=== PATIENT | male | born 1965 | race Caucasian/White ===

== ENCOUNTER 2024-03-17 21:40 | Emergency (ER) | payer MEDICAID ==
[2024-03-17] MEDS ORDERED: Sodium Chloride 0.9% 10 ML Syringe FLUSH PRN (21:46)
[2024-03-17 22:06] LABS: BASOPHILS PERCENT AUTO 0.3 % (0.2-1.2); EOSINOPHILS ABSOLUTE AUTO 0.2 x10^3/uL (0.0-0.5); EOSINOPHILS PERCENT AUTO 2.8 % (0.0-4.0); HEMATOCRIT 45.4 % (40.0-52.0); HEMOGLOBIN 15.8 g/dL (14.0-18.0); IMMATURE GRAN ABSOLUTE AUTO 0.01 x10^3/uL (0.00-0.07); LYMPHOCYTES ABSOLUTE AUTO 2.5 x10^3/uL (1.0-4.8); LYMPHOCYTES PERCENT AUTO 31.6 % (25.0-50.0); MEAN CORPUSCULAR HEMOGLOBIN 32.2 pg (26.0-32.0); MEAN CORPUSCULAR HGB CONC 34.8 g/dL (32.0-36.0); MEAN CORPUSCULAR VOLUME 92.7 fL (78.0-93.0); MONOCYTES ABSOLUTE AUTO 0.7 x10^3/uL (0.0-0.8); MONOCYTES PERCENT AUTO 9.3 % (2.0-11.0); NEUTROPHILS ABSOLUTE AUTO 4.5 x10^3/uL (1.8-7.7); NEUTROPHILS PERCENT AUTO 55.9 % (50.0-80.0); PLATELET COUNT,PLT 252 x10^3/uL (130-400)
[2024-03-17 22:18] LABS: PROTHROMBIN TIME 10.4 SEC (8.9-11.5)
[2024-03-17 22:23] LABS: A/G RATIO 1.13; ALANINE AMINOTRANSFERASE,ALT 14 U/L (16-63); ALBUMIN 3.6 g/dL (3.4-5.0); ALKALINE PHOSPHATASE 85 U/L (46-116); ANION GAP 13.7 mmol/L (5-15); ASPARTATE AMNIOTRANSFERASE,AST 13 U/L (15-37); BILIRUBIN TOTAL 0.2 mg/dL (0.2-1.0); BLOOD UREA NITROGEN,BUN 14 mg/dL (7-18); CALCIUM 8.3 mg/dL (8.5-10.1); CARBON DIOXIDE,CO2 27 mmol/L (21-32); CHLORIDE,CL 105 mmol/L (98-107); CREATININE 0.8 mg/dL (0.70-1.30); ESTIMATED GFR 102 mL/min (>=60); GLUCOSE RANDOM 94 mg/dL (70-99); MAGNESIUM 1.7 mg/dL (1.8-2.4); POTASSIUM,K 3.7 mmol/L (3.5-5.1); PROTEIN TOTAL,TP 6.8 g/dL (6.4-8.2); SODIUM,NA 142 mmol/L (136-145)
== END 2024-03-17 22:12 | disposition left against medical advice (07) ==
LOC: VM.ED 21:40
DX: R07.9 Chest pain, unspecified (principal)
CPT/HCPCS: 36415; 71045; 80053; 83735; 84484; 85025; 85610; 93005; 93010; 99284; 99285

== ENCOUNTER 2025-05-06 03:20 | Emergency (ER) | payer SELFPAY ==
[2025-05-06] MEDS ORDERED: Dexamethasone 4 MG/ML SDV IM ONE (03:33)
[2025-05-06] MEDS: Albuterol 0.083% 2.5 MG/3 ML Neb Soln NEB ONE (03:36)
[2025-05-06] MEDS: Dexamethasone Sod Phos Preservative Free 10 MG/ML Vial IM ONE (03:41)
[2025-05-06] MEDS: Take Home: Albuterol 18 GM Inhaler, 1 Inhaler Pack INH PRN (03:56)
== END 2025-05-06 03:58 | disposition home or self-care (01) ==
LOC: VM.ED 03:20 → SUPCPDRO 03:20 → VM.ED 03:58
DX: J06.9 Acute upper respiratory infection, unspecified (principal); J45.20 Mild intermittent asthma, uncomplicated; Z88.5 Allergy status to narcotic agent; Z79.899 Other long term (current) drug therapy
CPT/HCPCS: 94640; 96372; 99284; A9270-GY